=== PATIENT | male | born 1940 | race Caucasian/White ===

== ENCOUNTER 2018-01-19 16:30 | Emergency (ER) | payer MEDICARE, OTHER ==
[~2018-01-19] VITALS: Ht 167.6 cm; Wt 89.3 kg
[~2018-01-19 16:30] MED LIST: AMBIEN 10MG10 MG PO; AMBIEN10 MG PO; ANTIVERT 25MG25 MG PO; APRESOLINE 10MG10 MG PO; APRESOLINE PO; ASPI325T6 PO; ASPIR-LOW81 MG PO; ASPIRIN E.C. 8181 MG PO; ATORVASTATIN; B-121000 MCG PO; BENICAR; DESYREL 50MG50 MG PO; FLEXERIL5 MG PO; FORTAMET500 MG PO; GABAPENTIN TAB600 MG PO; GABAPENTIN100 M1 PO; GABAPENTIN300 M1 PO; GLUCOPHAGE1000 MG PO; HYZAAR 25 MG-101 TAB PO; HYZAAR 50-12.1 UDTAB PO; LIPITOR 10MG10 MG PO; LISINOPRIL20 MG PO; LOPRESSOR; LOPRESSOR 550 MG/TAB PO; NEURONTIN300 MG/CAP PO; NEURONTIN600 MG/TAB PO; PLETAL 100MG T100 MG PO; SIMVASTATIN20 MG PO; TOPROL XL 50MG50 MG PO; TOPROL XL100 MG PO; TRICOR 48MG48 MG PO; TRICOR145 MG PO; ULTRAM 50MG TAB50 MG PO; ZOCOR 20MG20 MG PO; ZOFRAN8 MG PO
[2018-01-19 16:38] VITALS: TEMP 99.8
[2018-01-19 17:09] LABS: BASO % 0.2 % (0.0-2.0); EOS % 0.2 % (0-4.0); GRAN # 13.4 (1.4-6.5); GRAN % 83.1 % (42.2-75.2); HEMOGLOBIN 12.7 g/dl (13.5-18.0); LYMPH # 1.3 (1.2-3.4); LYMPH % 8.1 % (20.0-51.0); MEAN CELL VOLUME 91 fl (80.0-100.0); MEAN CORPUSCULAR HEMOGLOBIN 32 pg (27.0-31.0); MEAN CORPUSCULAR HGB CONC 35 g/dl (33.0-37.0); MEAN PLATELET VOLUME 8.5 fl (7.4-10.4); MONO # 1.3 (0.1-0.6); PLATELET COUNT 138 K/mm3 (130-400); RED BLOOD COUNT 3.98 M/mm3 (4.20-5.60); REDCELL DISTRIBUTION WIDTH-CV 12.7 % (11.5-14.5)
[2018-01-19 17:29] LABS: ALBUMIN 3.9 gm/dL (3.5-5.0); BILIRUBIN,TOTAL 0.9 mg/dL (0.0-1.0); C-REACTIVE PROTEIN 5.5 mg/dL (0.0-0.9); CREATININE, serum 0.89 mg/dL (0.66-1.25); POTASSIUM 3.5 mmol/L (3.4-5.0); TOTAL PROTEIN 6.7 gm/dL (6.4-8.2)
[2018-01-19 17:43] LABS: PROLACTIN 14.6 ng/mL (3.7-17.9)
[2018-01-19 17:51] LABS: COLLECTION METHOD CLEAN CATCH
[2018-01-19 18:08] LABS: MUCOUS Present /lpf; PH 5 (5-8); SQUAMOUS EPITHELIAL 0-2 /hpf; URINE APPEARANCE Clear; URINE BACTERIA None Seen /hpf; URINE BILIRUBIN Negative (NEGATIVE); URINE BLOOD Negative (NEGATIVE); URINE COLOR Yellow; URINE GLUCOSE Negative (NEGATIVE); URINE KETONE Negative (NEGATIVE); URINE LEUKOCYTE ESTERASE 2+ (NEGATIVE); URINE NITRATE Negative (NEGATIVE); URINE PROTEIN(semi-quant) 2+ (NEGATIVE); URINE RBC 0-2 /hpf; URINE UROBILINOGEN Negative (NEGATIVE)
[2018-01-19] MEDS ORDERED: OMNICEF 300MG300 MG PO (19:06)
[2018-01-19 19:44] VITALS: BP 134/67; PULSE 67
== END 2018-01-19 19:44 | disposition home or self-care (01) ==
LOC: COL.ER 16:30
PROVIDERS: Family Medicine
DX: J18.1 Lobar pneumonia, unspecified organism (principal); I25.10 Atherosclerotic heart disease of native coronary artery without angina pectoris; E11.9 Type 2 diabetes mellitus without complications; I10 Essential (primary) hypertension; Z79.82 Long term (current) use of aspirin; Z79.84 Long term (current) use of oral hypoglycemic drugs; Z98.890 Other specified postprocedural states
CPT/HCPCS: J0696

== ENCOUNTER 2018-05-09 09:38 | Emergency (ER) | payer MEDICARE, OTHER ==
[~2018-05-09] VITALS: Ht 167.6 cm; Wt 100.0 kg
[~2018-05-09 09:38] MED LIST changes: +OMNICEF 300MG300 MG PO
[2018-05-09 10:20] LABS: BASO % 0.4 % (0.0-2.0); EOS # 0.2 (0.0-0.7); EOS % 2.2 % (0-4.0); GRAN # 8.3 (1.4-6.5); GRAN % 78.9 % (42.2-75.2); HEMOGLOBIN 13.7 g/dl (13.5-18.0); LYMPH # 1.2 (1.2-3.4); LYMPH % 11.3 % (20.0-51.0); MEAN CELL VOLUME 90 fl (80.0-100.0); MEAN CORPUSCULAR HEMOGLOBIN 32 pg (27.0-31.0); MEAN CORPUSCULAR HGB CONC 35 g/dl (33.0-37.0); MEAN PLATELET VOLUME 8.5 fl (7.4-10.4); MONO # 0.6 (0.1-0.6); PLATELET COUNT 180 K/mm3 (130-400); RED BLOOD COUNT 4.34 M/mm3 (4.20-5.60); REDCELL DISTRIBUTION WIDTH-CV 12.7 % (11.5-14.5)
[2018-05-09 11:32] LABS: ALBUMIN 3.9 gm/dL (3.5-5.0); BILIRUBIN,TOTAL 0.6 mg/dL (0.0-1.0); CALCIUM 9.4 mg/dL (8.4-10.2); CREATININE, serum 0.83 mg/dL (0.66-1.25); POTASSIUM 3.8 mmol/L (3.4-5.0); TOTAL PROTEIN 6.8 gm/dL (6.4-8.2)
[2018-05-09] MEDS ORDERED: ZITHROMAX Z PA250 MG PO (11:41)
[2018-05-09 11:57] VITALS: BP 153/66; PULSE 55; TEMP 97
== END 2018-05-09 11:57 | disposition home or self-care (01) ==
LOC: COL.ER 09:38
PROVIDERS: Family Medicine
DX: J20.9 Acute bronchitis, unspecified (principal); S00.83XA Contusion of other part of head, initial encounter; I25.10 Atherosclerotic heart disease of native coronary artery without angina pectoris; E11.9 Type 2 diabetes mellitus without complications; I10 Essential (primary) hypertension; Z79.82 Long term (current) use of aspirin; Z79.84 Long term (current) use of oral hypoglycemic drugs; Z95.5 Presence of coronary angioplasty implant and graft; W18.30XA Fall on same level, unspecified, initial encounter; W22.8XXA Striking against or struck by other objects, initial encounter

== ENCOUNTER 2018-08-10 18:40 | Emergency (ER) | payer MEDICARE, OTHER ==
[~2018-08-10] VITALS: Ht 170.2 cm; Wt 96.4 kg
[~2018-08-10 18:40] MED LIST changes: +ZITHROMAX Z PA250 MG PO
[2018-08-10 18:52] VITALS: TEMP 97
[2018-08-10 19:27] LABS: BASO % 0.3 % (0.0-2.0); EOS # 0.1 (0.0-0.7); EOS % 1.9 % (0-4.0); GRAN # 5.5 (1.4-6.5); GRAN % 73.8 % (42.2-75.2); HEMOGLOBIN 12.9 g/dl (13.5-18.0); LYMPH # 1.3 (1.2-3.4); MEAN CELL VOLUME 90 fl (80.0-100.0); MEAN CORPUSCULAR HEMOGLOBIN 32 pg (27.0-31.0); MEAN CORPUSCULAR HGB CONC 35 g/dl (33.0-37.0); MEAN PLATELET VOLUME 8.9 fl (7.4-10.4); MONO # 0.5 (0.1-0.6); MONO % 6.6 % (1.7-9.3); PLATELET COUNT 145 K/mm3 (130-400); RED BLOOD COUNT 4.07 M/mm3 (4.20-5.60); REDCELL DISTRIBUTION WIDTH-CV 12.6 % (11.5-14.5)
[2018-08-10 19:28] LABS: HEMATOCRIT 36.5 % (42.0-52.0)
[2018-08-10 19:31] LABS: PROTHROMBIN TIME 11.2 SECONDS (9.7-12.8)
[2018-08-10 19:34] LABS: PARTIAL THROMBOPLASTIN TIME 28.5 SECONDS (26.0-37.0)
[2018-08-10 19:38] LABS: ALANINE AMINOTRANSFERASE 23 U/L (21-72); ALKALINE PHOSPHATASE 47 U/L (50-136); ANION GAP 8 mmol/L (7-16); AST,SGOT 24 U/L (15-37); BILIRUBIN,TOTAL 0.8 mg/dL (0.0-1.0); BLOOD UREA NITROGEN 20 mg/dL (9-20); CALCIUM 9.3 mg/dL (8.4-10.2); CARBON DIOXIDE 31 mmol/L (22-30); CHLORIDE 101 mmol/L (98-107); CREATININE, serum 0.94 (0.66-1.25); GLUCOSE 134 mg/dL (74-106); POTASSIUM 3.7 mmol/L (3.4-5.0); SODIUM 141 mmol/L (137-145); TOTAL PROTEIN 6.7 gm/dL (6.4-8.2)
[2018-08-10 19:51] LABS: TROPONIN-I < 0.012 ng/mL (0.000-0.035)
[2018-08-10 22:05] VITALS: BP 154/81; PULSE 55
== END 2018-08-10 22:13 | disposition home or self-care (01) ==
LOC: COL.ER 18:40
PROVIDERS: Family Medicine
DX: R55 Syncope and collapse (principal); I10 Essential (primary) hypertension
CPT/HCPCS: Q9967

== ENCOUNTER 2019-05-04 04:54 | Emergency (ER) | payer MEDICARE, OTHER ==
[~2019-05-04] VITALS: Ht 167.6 cm; Wt 95.5 kg
[2019-05-04 05:27] LABS: ALBUMIN 3.9 gm/dL (3.5-5.0); BILIRUBIN,TOTAL 1.2 mg/dL (0.0-1.0); CALCIUM 8.6 mg/dL (8.4-10.2); CREATININE, serum 0.87 (0.66-1.25); POTASSIUM 3.5 mmol/L (3.4-5.0); TOTAL PROTEIN 6.5 gm/dL (6.4-8.2)
[2019-05-04 05:30] LABS: BASO % 0.2 % (0.0-2.0); EOS # 0.1 (0.0-0.7); EOS % 0.9 % (0-4.0); GRAN # 6.8 (1.4-6.5); GRAN % 74.9 % (42.2-75.2); HEMATOCRIT 34.6 % (42.0-52.0); LYMPH # 1.1 (1.2-3.4); LYMPH % 11.6 % (20.0-51.0); MEAN CELL VOLUME 91 fl (80.0-100.0); MEAN CORPUSCULAR HEMOGLOBIN 32 pg (27.0-31.0); MEAN CORPUSCULAR HGB CONC 35 g/dl (33.0-37.0); MEAN PLATELET VOLUME 8.8 fl (7.4-10.4); MONO # 1.1 (0.1-0.6); PLATELET COUNT 117 K/mm3 (130-400); RED BLOOD COUNT 3.79 M/mm3 (4.20-5.60); REDCELL DISTRIBUTION WIDTH-CV 12.9 % (11.5-14.5)
[2019-05-04] MEDS ORDERED: TAMIFLU 75MG75 MG PO (09:06)
[2019-05-04 10:04] VITALS: BP 109/52; PULSE 61; TEMP 97
== END 2019-05-04 10:26 | disposition home or self-care (01) ==
LOC: COL.ER 04:54
PROVIDERS: Emergency Medicine
DX: J11.1 Influenza due to unidentified influenza virus with other respiratory manifestations (principal); I25.10 Atherosclerotic heart disease of native coronary artery without angina pectoris; I10 Essential (primary) hypertension; E11.9 Type 2 diabetes mellitus without complications; E78.5 Hyperlipidemia, unspecified; Z95.5 Presence of coronary angioplasty implant and graft; Z87.891 Personal history of nicotine dependence; Z79.82 Long term (current) use of aspirin; Z79.84 Long term (current) use of oral hypoglycemic drugs
CPT/HCPCS: J1885; J2405; J3010; J7030

== ENCOUNTER 2022-01-27 13:30 | Emergency (ER) | payer MEDICARE, OTHER ==
[2022-01-27] VITALS (147 sets, daily range): BP systolic 166; BP diastolic 72; PULSE 69; TEMP 98.4; O2SAT 78–98
[~2022-01-27] VITALS: Ht 170.2 cm; Wt 86.4 kg
[~2022-01-27 13:30] MED LIST changes: +APRESOLINE 25MG25 MG PO; +DESYREL 100MG100 MG PO; +IRON 27 MG PO; +LOPRESSOR100 MG PO; +NORCO 325 MG-51 TAB PO; +NORVASC2.5 MG PO; +PLAVIX 75MG TAB75 MG PO; +TAMIFLU 75MG75 MG PO; +ZOCOR 40MG40 MG PO
[2022-01-27 14:51] LABS: BASO % 0.3 % (0.0-2.0); EOS # 0.1 K/mm3 (0.0-0.7); GRAN # 6.1 K/mm3 (1.4-6.5); GRAN % 79.5 % (42.2-75.2); HEMOGLOBIN 10.4 g/dl (13.5-18.0); LYMPH # 0.8 K/mm3 (1.2-3.4); LYMPH % 10.4 % (20.0-51.0); MEAN CELL VOLUME 95 fl (80.0-100.0); MEAN CORPUSCULAR HEMOGLOBIN 31 pg (27-31); MEAN CORPUSCULAR HGB CONC 33 g/dl (33.0-37.0); MEAN PLATELET VOLUME 9.2 fl (7.4-10.4); MONO # 0.6 K/mm3 (0.1-0.6); PLATELET COUNT 163 K/mm3 (130-400); RED BLOOD COUNT 3.31 M/mm3 (4.20-5.60); REDCELL DISTRIBUTION WIDTH-CV 12.9 % (11.5-14.5)
[2022-01-27 14:55] LABS: HEMATOCRIT 31.4 % (42.0-52.0)
[2022-01-27 15:01] LABS: COLLECTION METHOD CLEAN CATCH
[2022-01-27 15:10] LABS: ALANINE AMINOTRANSFERASE 50 U/L (0-55); ALBUMIN 3.1 gm/dL (3.4-4.8); ALKALINE PHOSPHATASE 89 U/L (40-150); ANION GAP 8 mmol/L (7-16); AST,SGOT 29 U/L (5-34); BILIRUBIN,TOTAL 1.3 mg/dL (0.2-1.2); BLOOD UREA NITROGEN 16 mg/dL (8-26); CALCIUM 8.6 mg/dL (8.4-10.2); CARBON DIOXIDE 28 mmol/L (23-31); CHLORIDE 102 mmol/L (98-107); CREATININE, serum 0.93 mg/dL (0.72-1.25); GLUCOSE 155 mg/dL (70-99); POTASSIUM 3.5 mmol/L (3.5-4.5); SODIUM 138 mmol/L (136-145); TOTAL PROTEIN 5.9 gm/dL (6.2-8.1)
[2022-01-27 15:18] LABS: TROPONIN-I < 0.010 ng/mL (0.00-0.033)
[2022-01-27 15:25] LABS: URINE APPEARANCE Clear (CLEAR/HAZY); URINE COLOR Yellow (YELLOW)
[2022-01-27 15:31] LABS: PH 5.5 (5.0-8.5); URINE BLOOD Negative (NEGATIVE); URINE GLUCOSE Negative (NEGATIVE); URINE KETONE Negative (NEGATIVE); URINE NITRATE Negative (NEGATIVE); URINE PROTEIN(semi-quant) TRACE (NEGATIVE)
[2022-01-27 16:25] LABS: SQUAMOUS EPITHELIAL 0-2 /hpf (0-10); URINE BACTERIA None Seen /hpf (NONE SEEN); URINE RBC None Seen /hpf (0-2)
[2022-01-27] MEDS ORDERED: PROTONIX 40MG T40 MG PO (18:12)
[2022-01-28] MEDS ORDERED: PROTONIX 40MG T40 MG PO (15:00)
== END 2022-01-27 18:30 | disposition other institution (70) ==
LOC: COL.ER 13:30 → MEDICAL 16:38
PROVIDERS: Nurse Practitioner Family
DX: I48.91 Unspecified atrial fibrillation (principal); I50.9 Heart failure, unspecified; R10.11 Right upper quadrant pain; J90 Pleural effusion, not elsewhere classified; I25.2 Old myocardial infarction; Z28.311 Partially vaccinated for COVID-19; Z87.891 Personal history of nicotine dependence; Z95.9 Presence of cardiac and vascular implant and graft, unspecified; Z98.890 Other specified postprocedural states
CPT/HCPCS: Q9967

== ENCOUNTER 2022-01-28 10:53 | Day surgery (SDC) | payer MEDICARE, OTHER ==
[~2022-01-28] VITALS: Ht 170.2 cm; Wt 93.3 kg
[~2022-01-28 10:53] MED LIST changes: +PROTONIX 40MG T40 MG PO
[2022-01-28 14:40] VITALS: BP 133/57; PULSE 62
--- NOTE | 2022-01-28 14:40 | NUR ---
PATIENT RETURNS TO BAY 3 PER CART ACCOMPANIED BY TIGRE SIMON AND IS AWAKE AND ALERT. TRANSFERS FROM CART TO RECLINER WITH TWO PERSON ASSIST. IV FLUIDS INFUSING. SPOUSE AND NEPHEW IN ROOM. CALL LIGHT IN REACH. ROOM AIR SATS 88-89 AND PLACED ON OXYGEN AT 2L PER NASAL CANNULA. WILL CONTINUE TO MONITORED.
[2022-01-28 14:55] VITALS: BP 140/79; PULSE 58
--- NOTE | 2022-01-28 14:55 | NUR ---
DR. SOLOMON WAS IN THE ROOM AND TALKED WITH THE PATIENT. ALL QUESTIONS WERE ANSWERED. SPOUSE IN ROOM AND NEPHEW.
[2022-01-28] MEDS ORDERED: PROTONIX 40MG T40 MG PO (15:00)
[2022-01-28 15:05] VITALS: BP 167/72; PULSE 60
--- NOTE | 2022-01-28 15:05 | NUR ---
IV DISCONTINUED AND SITE IS FREE OF REDNESS OR SWELLING. OXYGEN REMOVED AND SATS 93%.
--- NOTE | 2022-01-28 15:22 | NUR ---
PATIENT DISCHARGED TO HOME DRIVEN BY NEPHEW AND TAKEN TO VEHICLE PER WHEELCHAIR AND ASSISTED INTO VEHICLE WITH DISMISSAL INSTRUCTIONS IN HAND.
[2022-01-28 16:03] VITALS: BP 164/66; PULSE 58; TEMP 97.4
== END 2022-01-28 15:22 | disposition home or self-care (01) ==
LOC: SDCO 10:53
DX: K29.30 Chronic superficial gastritis without bleeding (principal); K31.819 Angiodysplasia of stomach and duodenum without bleeding; Z87.891 Personal history of nicotine dependence
CPT/HCPCS: J2704; J7120

== ENCOUNTER 2022-01-29 10:07 | Inpatient (IN) | payer MEDICARE, OTHER ==
[~2022-01-29] VITALS: Ht 170.2 cm; Wt 93.4 kg
[2022-01-29 10:36] LABS: BASO % 0.4 % (0.0-2.0); EOS # 0.1 K/mm3 (0.0-0.7); EOS % 0.6 % (0.0-4.0); GRAN # 8.6 K/mm3 (1.4-6.5); GRAN % 82.3 % (42.2-75.2); HEMOGLOBIN 11.3 g/dl (13.5-18.0); LYMPH # 0.9 K/mm3 (1.2-3.4); LYMPH % 8.5 % (20.0-51.0); MEAN CELL VOLUME 92 fl (80.0-100.0); MEAN CORPUSCULAR HEMOGLOBIN 32 pg (27-31); MEAN CORPUSCULAR HGB CONC 34 g/dl (33.0-37.0); MEAN PLATELET VOLUME 8.6 fl (7.4-10.4); MONO # 0.8 K/mm3 (0.1-0.6); MONO % 7.4 % (1.7-9.3); PLATELET COUNT 242 K/mm3 (130-400); RED BLOOD COUNT 3.58 M/mm3 (4.20-5.60); REDCELL DISTRIBUTION WIDTH-CV 12.9 % (11.5-14.5)
[2022-01-29 10:40] LABS: HEMATOCRIT 32.9 % (42.0-52.0)
[2022-01-29 10:53] LABS: ALBUMIN 3.2 gm/dL (3.4-4.8); BILIRUBIN,TOTAL 1.7 mg/dL (0.2-1.2); CALCIUM 8.6 mg/dL (8.4-10.2); CREATININE, serum 0.85 mg/dL (0.72-1.25); POTASSIUM 3.4 mmol/L (3.5-4.5); TOTAL PROTEIN 6.3 gm/dL (6.2-8.1)
[2022-01-29 10:59] LABS: TROPONIN-I 0.03 ng/mL (0.00-0.033)
[2022-01-29 13:18] VITALS: BP 150/53; PULSE 65; TEMP 97.4
[2022-01-29 15:34] VITALS: BP 157/58; PULSE 55; TEMP 97.4
--- NOTE | 2022-01-29 17:23 | NUR ---
PATIENT ADMITTED TO ROOM 317 FROM ER ACCOMPANIED BY ER STAFF. PATIENT IS ALERT AND ORIENTED X4. DENIES PAIN. LUNGS CTA. +1 EDEMA TO BLE. ORIENTED TO ROOM AND USE OF CALL LIGHT. ON FLUID RESTRICTION OF 1500/DAY. ON POTASSIUM REPLACEMENT. DENIES ANY NEEDS AT THIS TIME. CALL LIGHT WITHIN REACH.
[2022-01-29 19:45] VITALS: BP 171/91; PULSE 69; TEMP 97.7
[2022-01-29 23:51] VITALS: BP 132/43; PULSE 100; TEMP 97.5
[2022-01-30] VITALS (7 sets, daily range): BP systolic 125–152; BP diastolic 35–63; PULSE 45–55; TEMP 97.2–97.7
--- NOTE | 2022-01-30 01:43 | NUR ---
THE NURSING SHIFT ASSESSMENT WAS COMPLETED. UPON ASSESSMENT IT WAS NOTED THE PATIENT HAD JUST WALKED BACK FROM THE BATHROOM AND THE PATIENT APPEARED TO BE VERY SHORT OF BREATH. IT TOOK THE PATIENT ABOUT 3 TO 5 MINUTES TO RECOVER. THE PATIENT STATED HE DID NOT WANT TO SLEEP IN THE BED AND AT HOME HE SLEEPS IN THE RECLINER AT TIMES. THE PATIENT WAS ASSURED THAT WHEN HE WAS READY HE COULD GET IN THE RECLINER AT ANYTIME WITH SBA AND REMINDED TO USE THE CALL LIGHT FOR ASSISTANCE. THE ORDERED IV LASIX WAS DISCUSSED AND IT WAS GIVEN PER THE ORDER. THE PTS LUNG SOUNDS BILATERALLY WERE VERY DIMINISHED IN THE BASES. THE PATIENT DENIED OTHER NEEDS AND DENIES PAIN. CALL LIGHT WITHIN REACH WELL OTHER PERSONAL BELONGINGS. BED IN LOWEST POSITION AND BED ALARM ON.
--- NOTE | 2022-01-30 03:43 | NUR ---
Patient care, medication administration and nursing documentation occurred during a Daylight Savings Time Change.
--- NOTE | 2022-01-30 03:46 | NUR ---
ANGEL CHEN APRN NOTIFIED OF THE PATIENTS CONTINUED BRADYCARDIA RANGING FROM 39-50 WHILE THE PATIENT IS SLEEPING. BP 140/39, HR 45, SPO2 94% ON 3 LPM PER NC. HOLDING LOPRESSOR AT THIS TIME PER ANGEL CHEN APRN. WILL MONITOR.
[2022-01-30 06:41] LABS: BASO % 0.2 % (0.0-2.0); EOS # 0.1 K/mm3 (0.0-0.7); EOS % 0.6 % (0.0-4.0); GRAN # 6.6 K/mm3 (1.4-6.5); GRAN % 80.3 % (42.2-75.2); HEMOGLOBIN 10.6 g/dl (13.5-18.0); LYMPH # 0.8 K/mm3 (1.2-3.4); LYMPH % 9.5 % (20.0-51.0); MEAN CELL VOLUME 94 fl (80.0-100.0); MEAN CORPUSCULAR HEMOGLOBIN 31 pg (27-31); MEAN CORPUSCULAR HGB CONC 33 g/dl (33.0-37.0); MEAN PLATELET VOLUME 8.5 fl (7.4-10.4); MONO # 0.7 K/mm3 (0.1-0.6); MONO % 8.9 % (1.7-9.3); PLATELET COUNT 232 K/mm3 (130-400); RED BLOOD COUNT 3.43 M/mm3 (4.20-5.60); REDCELL DISTRIBUTION WIDTH-CV 12.9 % (11.5-14.5)
[2022-01-30 06:45] LABS: HEMATOCRIT 32.3 % (42.0-52.0)
[2022-01-30 06:50] LABS: CALCIUM 8.5 mg/dL (8.4-10.2); CREATININE, serum 0.81 mg/dL (0.72-1.25); MAGNESIUM 1.8 mg/dL (1.6-2.6); POTASSIUM 3.1 mmol/L (3.5-4.5)
--- NOTE | 2022-01-30 09:34 | NUR ---
SHIFT ASSESSMENT COMPLETED. PATIENT IS ALERT AND ORIENTED X4. LUNGS CTA. PATIENT BRADYCARDIC OVERNIGHT AND THIS MORNING, CURRENT HR IS 50. DR. RAZO UPDATED REGARDING BRADYCARDIA, PER DR. RAZO, HOLD CARDIAC MEDICATIONS THIS MORNING UNTIL HE IS ABLE TO REVIEW. PATIENT ALSO REFUSED HIS AM INSULIN DOSE, STATES HE DOES NOT WANT TO TAKE INSULIN HE DOES NOT TAKE IT AT HOME. DENIES ANY PAIN. DENIES NEEDS AT THIS TIME. CALL LIGHT WITHIN REACH.
--- NOTE | 2022-01-30 09:43 | NUR ---
SW met with patient to complete intake. Patient provides that he lives in [facility] with his Ani riddle [phone]. Patient is independent with ADLs, does not use DME and does not utilize HH services at this time. PCP is Dr. Wills, and pharmacy is [facility]. Patient states that he does not have anyone appointed as his DPOA/HC and does not wish to appoint anyone at this time. Plan is to return to his home upon DC. SW will continue to follow. DC plan: home
[2022-01-30 14:01] LABS: PARTIAL THROMBOPLASTIN TIME 28.6 SECONDS (26.0-37.0)
--- NOTE | 2022-01-30 17:48 | NUR ---
PATIENT UP IN CHAIR AT THIS TIME AWAITING EVENING MEAL. CONTINUES ON HEPARIN GTT. CURRENT HR IS 65. DENIES PAIN. NOTED TO BE UNSTEADY WITH AMBULATION THIS SHIFT, FALL PRECAUTIONS IN PLACE AND CHAIR ALARM ON. PATIENT EDUCATED ON IMPORTANCE OF HAVING STAFF MEMBER WITH HIM WHEN HE GETS UP, VERBALIZED UNDERSTANDING. DENIES NEEDS AT THIS TIME. CALL LIGHT WITHIN REACH.
--- NOTE | 2022-01-31 03:25 | NUR ---
NURSING SHIFT ASSESSMENT COMPLETED. THE PATIENT WAS ALERT AND ORIENTED UPON ASSESSMENT AND WATCHING THE [employer] GAME. THE PATIENT DENIED PAIN. THE PLAN OF CARE WAS DISCUSSED AND QUESTIONS AND CONCERNS WERE ADDRESSED. THE PATIENT WAS ASSISTED TO THE BATHROOM AT THIS TIME. CURRENTLY THE PATIENT IS IN BED WATCHING TV WITHOUT CONCERNS. CALL LIGHT, PERSONAL BELONGINGS WITHIN REACH AND BED IN LOW POSITION.
[2022-01-31 04:39] VITALS: BP 155/77; PULSE 55; TEMP 97.4
[2022-01-31 07:28] VITALS: BP 143/50; PULSE 55; TEMP 97.7
--- NOTE | 2022-01-31 10:01 | NUR ---
PT RESTING IN BED. MORNING MEDICATIONS GIVEN. SHIFT ASSESSMENT COMPLETED. HEP GTT INFUSING AT 17ML/HR, NEXT XA CHECK TOMORROW MORNING. UPDATED PT ON POC. CURRENTLY ON O2 VIA NC. DENIES ANY NEEDS AT THIS TIME. CONTINUING TO MONITOR.
[2022-01-31 11:42] VITALS: BP 135/56; PULSE 69; TEMP 97.5
[2022-01-31 13:04] LABS: BASO % 0.2 % (0.0-2.0); EOS # 0.1 K/mm3 (0.0-0.7); GRAN # 6.5 K/mm3 (1.4-6.5); HEMATOCRIT 37.4 % (42.0-52.0); HEMOGLOBIN 12.5 g/dl (13.5-18.0); LYMPH # 1.1 K/mm3 (1.2-3.4); LYMPH % 12.8 % (20.0-51.0); MEAN CELL VOLUME 93 fl (80.0-100.0); MEAN CORPUSCULAR HEMOGLOBIN 31 pg (27-31); MEAN CORPUSCULAR HGB CONC 33 g/dl (33.0-37.0); MEAN PLATELET VOLUME 8.3 fl (7.4-10.4); MONO # 0.6 K/mm3 (0.1-0.6); MONO % 7.3 % (1.7-9.3); PLATELET COUNT 302 K/mm3 (130-400); RED BLOOD COUNT 4.04 M/mm3 (4.20-5.60); REDCELL DISTRIBUTION WIDTH-CV 12.9 % (11.5-14.5)
[2022-01-31 13:20] LABS: CREATININE, serum 0.93 mg/dL (0.72-1.25); MAGNESIUM 1.9 mg/dL (1.6-2.6); POTASSIUM 3.5 mmol/L (3.5-4.5)
[2022-01-31 15:57] VITALS: BP 136/56; PULSE 68; TEMP 97.6
[2022-01-31 20:41] VITALS: BP 154/50; PULSE 54; TEMP 97.7
--- NOTE | 2022-01-31 21:16 | NUR ---
PATIENT LAYING IN BED WATCHING TELEVISION. PATIENT DENIES PAIN, NEEDS OR CONCERNS. PATIENT HAS CALL LIGHT IN HAND AND ENCOURAGED TO USE WITH ANY NEEDS OR CONCERNS. PATIENT STATES UNDERSTANDING.
[2022-02-01 00:32] VITALS: BP 131/40; PULSE 89; TEMP 98
[2022-02-01 05:41] VITALS: BP 126/50; PULSE 75; TEMP 98.2
--- NOTE | 2022-02-01 06:30 | NUR ---
PATIENT HAS HAD AN UNEVENTFUL NIGHT. CALL LIGHT REMAINS WITHIN REACH OF PATIENT. PATIENT HAS CALLED APPROPRIATELY THIS SHIFT. DENIES PAIN, NEEDS OR CONCERNS AT THIS TIME. PATIENT ENCOURAGED TO USE CALL LIGHT WITH ANY NEEDS OR CONCERNS.
[2022-02-01 06:59] LABS: BASO % 0.3 % (0.0-2.0); EOS # 0.1 K/mm3 (0.0-0.7); EOS % 1.8 % (0.0-4.0); GRAN % 73.2 % (42.2-75.2); HEMOGLOBIN 11.1 g/dl (13.5-18.0); LYMPH % 14.5 % (20.0-51.0); MEAN CELL VOLUME 92 fl (80.0-100.0); MEAN CORPUSCULAR HEMOGLOBIN 31 pg (27-31); MEAN CORPUSCULAR HGB CONC 34 g/dl (33.0-37.0); MEAN PLATELET VOLUME 8.3 fl (7.4-10.4); MONO # 0.6 K/mm3 (0.1-0.6); MONO % 9.2 % (1.7-9.3); PLATELET COUNT 253 K/mm3 (130-400); RED BLOOD COUNT 3.59 M/mm3 (4.20-5.60); REDCELL DISTRIBUTION WIDTH-CV 12.9 % (11.5-14.5)
[2022-02-01 07:01] LABS: HEMATOCRIT 32.9 % (42.0-52.0)
[2022-02-01 07:18] LABS: CALCIUM 8.6 mg/dL (8.4-10.2); POTASSIUM 3.4 mmol/L (3.5-4.5)
[2022-02-01 08:02] VITALS: BP 143/51; PULSE 95; TEMP 97.5
[2022-02-01] MEDS ORDERED: LIPITOR 80MG80 MG PO (08:51)
[2022-02-01] MEDS ORDERED: ELIQUIS 5MG PO ×2 (08:51)
[2022-02-01] MEDS ORDERED: PROTONIX 40MG T40 MG PO (08:53)
[2022-02-01] MEDS ORDERED: LASIX 40MG TABL40 MG PO (08:59)
--- NOTE | 2022-02-01 09:32 | NUR ---
Reviewed education for chronic heart failure. Reviewed [facility] CHF educational booklet, with emphasis on daily weights, obtaining dry weights, monitoring for edema, shortness of breath, decreased endurance, or feeling full when eating less. Reviewed importance of medication compliance with all prescribed medications and when to call your medical provider (CHF Zones). Patient verbalized understanding. Patient s EF is 60% does not qualify for Cardiac Rehab. Patient encouraged to start light home exercise. Department contact information given if questions arise. Approx 10 min spent face to face coving education with patient.
--- NOTE | 2022-02-01 09:58 | NUR ---
SHIFT ASSESSMENT COMPLETED AND MORNING MEDICATIONS ADMINISTERED PER ORDER. PATIENT IS ALERT AND ORIENTED X4. DENIES ANY PAIN. LUNGS CTA. +1 EDEMA NOTED TO BLE. CONTINUES ON IV LASIX, TOLERATING WELL. ON POTASSIUM PROTOCOL. PLAN IS TO DISCHARGE TODAY. DENIES ANY NEEDS AT THIS TIME. CALL LIGHT WITHIN REACH, FALL PRECAUTIONS IN PLACE.
--- NOTE | 2022-02-01 10:13 | NUR ---
The clinical team is ready to discharge the patient and they are writing orders for home health. PT is recommending home health. ALEXANDRA met with the patient to review discharge plan and to discuss the benefits of home health. The patient plans to return home with his . He states that he has an RN staying with the patient now, that he hired. He is open to home health. ALEXANDRA provided him with Medicare[employer] list of home health agencies that serve [place]. The patient chose [facility]. ALEXANDRA presented and read the IM form outloud to the patient. The patient verbalized understanding and of agreement to discharge today. He signed the form and ALEXANDRA provided him with a copy. ALEXANDRA contacted and faxed a referral to Ramses at [facility]. Ramses states they can take the patient. The patient is to discharge back home with his today, 02/01, with home health services for fci/PT/OT from [facility]. No additional needs at this time.
[2022-02-01 11:29] VITALS: BP 112/43; PULSE 80; TEMP 97.8
--- NOTE | 2022-02-01 12:14 | NUR ---
PATIENT DISCHARGED PER ORDER. IV TO LEFT AC REMOVED WITH CATHETER INTACT, NO BLEEDING NOTED, PRESSURE AND GAUZE DRESSING APPLIED. DISCHARGE EDUCATION PROVIDED ON MEDICATIONS, FOLLOW UPS, AND DX. FAMILY AT BEDSIDE DURING DISCHARGE EDUCATION. FAMILY AND PATIENT DENY QUESTIONS AND VERBALIZE UNDERSTANDING. DENIES PAIN OR NEEDS PRIOR TO DISCHARGE. AWAITING PICKUP.
--- NOTE | 2022-02-01 13:16 | NUR ---
PATIENT'S FAMILY AT BEDSIDE, PATIENT TO DISCHARGE. PER FAMILY MEMBER, PATIENT'S INSURANCE DOES NOT COVER [employer], THEY HAVE ASKED THAT THE PATIENT BE CHANGED TO [facility]. DR. ORTIZ UPDATED. PER AC NINO FOR PATIENT TO CHANGE TO [facility], DR. ORTIZ TO PUT IN ORDER.
[2022-02-01] MEDS ORDERED: XARELTO20 MG PO (13:23)
== END 2022-02-01 14:35 | disposition home health service (06) | DRG 291 ==
LOC: COL.ER 10:07 → MEDICAL 11:28
PROVIDERS: Internal Medicine Adult Congenital Heart Disease; Nurse Practitioner; Physician Assistant; ADMIT Internal Medicine
DX: I11.0 Hypertensive heart disease with heart failure (principal); J96.01 Acute respiratory failure with hypoxia; J91.8 Pleural effusion in other conditions classified elsewhere; I31.39 Other pericardial effusion (noninflammatory); J44.9 Chronic obstructive pulmonary disease, unspecified; I48.91 Unspecified atrial fibrillation; I25.10 Atherosclerotic heart disease of native coronary artery without angina pectoris; G62.9 Polyneuropathy, unspecified; F10.90 Alcohol use, unspecified, uncomplicated; I73.9 Peripheral vascular disease, unspecified; G47.00 Insomnia, unspecified; E78.5 Hyperlipidemia, unspecified; E87.6 Hypokalemia; D64.9 Anemia, unspecified; K29.70 Gastritis, unspecified, without bleeding; K31.819 Angiodysplasia of stomach and duodenum without bleeding; G47.33 Obstructive sleep apnea (adult) (pediatric); E66.9 Obesity, unspecified; E11.9 Type 2 diabetes mellitus without complications; I08.1 Rheumatic disorders of both mitral and tricuspid valves; Z87.891 Personal history of nicotine dependence; Z95.5 Presence of coronary angioplasty implant and graft; Z85.828 Personal history of other malignant neoplasm of skin; Z88.8 Allergy status to other drugs, medicaments and biological substances; I25.2 Old myocardial infarction; Z79.82 Long term (current) use of aspirin; Z79.84 Long term (current) use of oral hypoglycemic drugs; Z23 Encounter for immunization
CPT/HCPCS: J1644; J1940; J3475; J3480